=== PATIENT | male | born 1980 ===

== ENCOUNTER 2020-05-03 02:26 | Emergency (ER) ==
[2020-05-03 02:48] LABS: HEMATOCRIT 44.8 % (42.0-52.0); HEMOGLOBIN 15.3 g/dl (13.5-18.0); MEAN CELL VOLUME 80 fl (80.0-100.0); MEAN CORPUSCULAR HEMOGLOBIN 27 pg (27.0-31.0); MEAN CORPUSCULAR HGB CONC 34 g/dl (33.0-37.0); MEAN PLATELET VOLUME 8.9 fl (7.4-10.4); PLATELET COUNT 384 K/mm3 (130-400)
[2020-05-03 02:49] LABS: INR 1.1 (0.8-3.0); PROTHROMBIN TIME 12.8 SECONDS (9.7-12.8)
[2020-05-03 02:50] LABS: ALBUMIN 4.3 gm/dL (3.5-5.0); BILIRUBIN,TOTAL 0.5 mg/dL (0.0-1.0); CALCIUM 8.3 mg/dL (8.4-10.2); CREATININE, serum 1.63 (0.66-1.25); POTASSIUM 4.3 mmol/L (3.4-5.0); TOTAL PROTEIN 7.1 gm/dL (6.4-8.2)
[2020-05-03 02:59] VITALS: BP 113/64; PULSE 96; TEMP 98.4
[2020-05-03 03:10] LABS: BAND 2 % (0-10); LYMPHOCYTE 19 % (20.0-51.0); NEUTROPHILS 70 % (42.0-75.2)
[2020-05-03 03:12] LABS: PLATELET ESTIMATE NORMAL (NORMAL)
[2020-05-03 03:15] VITALS: BP 125/88; PULSE 92; TEMP 98.2
== END 2020-05-03 03:43 | disposition short-term general hospital (02) ==
LOC: COL.ER 02:26
PROVIDERS: Emergency Medicine
DX: S31.640A Puncture wound with foreign body of abdominal wall, right upper quadrant with penetration into peritoneal cavity, initial encounter (principal); S36.892A Contusion of other intra-abdominal organs, initial encounter; X94.0XXA Assault by shotgun, initial encounter
CPT/HCPCS: J2405; J3010; J7030; J7040; P9016